=== PATIENT | male | born 1960 | race Caucasian/White ===

== ENCOUNTER → 2016-12-03 | Outpatient (CLI) | payer OTHER ==
[~2016-12-03] MED LIST: ALBUAER3 INH; BENZ100 PO; HYDR25TA5 PO; LISI-515 PO; LOVA20TA PO; MEDR4PAK PO; METF500T PO; METO50TA PO; METR0.7533 TOPICAL; ZITHTAB PO
[2016-12-03 14:33] LABS: HEMATOCRIT 48.3 % (39.0-51.0); MEAN CELL VOLUME 77.9 FL (80.0-100.0); MEAN CORPUSCULAR HEMOGLOBIN 25.9 PG (27.0-34.0); MEAN CORPUSCULAR HGB CONC 33.2 % (32.0-36.0); PLATELET COUNT 291 TH/MM3 (150-450); RED BLOOD COUNT 6.21 MIL/MM3 (4.50-5.90); RED CELL DISTRIBUTION WIDTH 14.4 % (11.6-17.2); REVIEW FLAG FINAL; WHITE BLOOD COUNT 8.5 TH/MM3 (4.0-11.0)
[2016-12-03 14:59] LABS: ALKALINE PHOSPHATASE 96 U/L (45-117); HDL CHOLESTEROL 53.1 MG/DL (40.0-60.0); TOTAL BILIRUBIN ADULT 0.3 MG/DL (0.2-1.0)
[2016-12-03 15:06] LABS: ALT (GPT) 54 U/L (12-78); ANION GAP 5 MEQ/L (5-15); AST (GOT) 28 U/L (15-37); BICARBONATE 28.2 MEQ/L (21.0-32.0); BLOOD UREA NITROGEN 8 MG/DL (7-18); CHLORIDE 106 MEQ/L (98-107); GLOMERULAR FILTRATION RATE 85 ML/MIN (>89); GLUCOSE,FASTING 182 MG/DL (74-99); LDL CHOLESTEROL 96 MG/DL (0-99); POTASSIUM 4.2 MEQ/L (3.5-5.1); SODIUM (NA) 139 MEQ/L (136-145)
[2016-12-03 16:58] LABS: HEMOGLOBIN A1a 0.9 %; HEMOGLOBIN A1b 2.1 %; HEMOGLOBIN Ao 81.5 %; HEMOGLOBIN LA1C 2.6 %; HEMOGLOBIN P3 4.2 %
== END ==
LOC: CLAB 14:07
PROVIDERS: ATTEND Family Medicine
DX: E11.9 Type 2 diabetes mellitus without complications (principal); E78.5 Hyperlipidemia, unspecified; I10 Essential (primary) hypertension; E66.9 Obesity, unspecified
CPT/HCPCS: 36415; 80053; 80061; 83036; 85027

== ENCOUNTER → 2017-05-09 | Outpatient (CLI) | payer OTHER ==
[~2017-05-09] MED LIST changes: -BENZ100 PO; -MEDR4PAK PO; -ZITHTAB PO
[2017-05-09 15:38] LABS: HEMOGLOBIN A1a 1.1 %; HEMOGLOBIN A1b 2.2 %; HEMOGLOBIN Ao 81.2 %; HEMOGLOBIN LA1C 2.6 %; HEMOGLOBIN P3 4.3 %
== END ==
LOC: CLAB 14:53
PROVIDERS: ATTEND Nurse Practitioner Family
DX: E11.9 Type 2 diabetes mellitus without complications (principal)
CPT/HCPCS: 36415; 83036

== ENCOUNTER → 2017-08-06 | Outpatient (CLI) | payer OTHER ==
[~2017-08-06] MED LIST changes: -ALBUAER3 INH; +GLIP10TA6 PO; +GLUCTES27; -HYDR25TA5 PO; +HYDR50TA3 PO; +TETR250C PO; +TRIA.1%T TOPICAL
[2017-08-06 17:17] LABS: HEMOGLOBIN A1b 1.9 %; HEMOGLOBIN LA1C 2.4 %; HEMOGLOBIN P3 4.1 %
== END ==
LOC: CLAB 12:12
PROVIDERS: ATTEND Nurse Practitioner Family
DX: E11.9 Type 2 diabetes mellitus without complications (principal)
CPT/HCPCS: 36415; 83036